=== PATIENT | female | born 1970 | race Two or more races ===

== ENCOUNTER 2021-12-07 08:00 | Outpatient (CLI) | payer OTHER | END 2021-12-07 08:30 | disposition home or self-care (01) | LOC: PPH VACUNA 08:00 | PROVIDERS: ATTEND Emergency Medicine Pediatric Emergency Medicine | DX: Z23 Encounter for immunization (principal) ==

== ENCOUNTER 2021-12-19 22:57 | Emergency (ER) | payer OTHER ==
[~2021-12-19] VITALS: Ht 157.5 cm; Wt 70.3 kg
== END 2021-12-20 01:07 | disposition home or self-care (01) ==
LOC: ER 22:57
DX: R00.2 Palpitations (principal)

== ENCOUNTER 2023-05-05 11:46 | Emergency (ER) | payer OTHER ==
[~2023-05-05] VITALS: Ht 170.2 cm; Wt 70.3 kg
== END 2023-05-05 19:47 | disposition home or self-care (01) ==
LOC: ER 11:46
DX: K52.9 Noninfective gastroenteritis and colitis, unspecified (principal)

== ENCOUNTER 2025-06-26 16:43 | Emergency (ER) | payer OTHER ==
[~2025-06-26] VITALS: Ht 170.2 cm; Wt 72.6 kg
[2025-06-26] MEDS ORDERED: FAMOTIDINE/PF 20 MG/2 ML VIAL IV PUSH STA (17:33)
[2025-06-26 18:05] LABS: BASO % 0.8 % (0.1-1.2); EOS # 0.17 (0.04-0.54); EOS % 4.4 % (0.7-7.0); LYMPH # 1.73 (1.18-3.74); LYMPH % 44.4 % (19.3-53.1); MEAN PLATELET VOLUME 10.10 fl (9.4-12.4); MONO # 0.32 (0.24-0.82); MONO % 8.2 % (4.7-12.5); NEUT # 1.64 (1.56-6.13); NEUT % 41.9 % (34.0-71.1); RED CELL DISTRIBUTION WIDTH 13.9 % (11.6-14.4)
[2025-06-26 18:34] LABS: ALT/SGPT 26.0 U/L (12-78); AST/SGOT 22.0 U/L (15-37); BILIRUBIN TOTAL 0.5 mg/dL (0.3-1.2); BUN CREA RATIO 22.0 (7.0-25.0); CREATININE SERUM 0.92 mg/dL (0.55-1.02); GFR 63.38; GLOBULINA 3.2 G/DL (2.4-3.5); GLUCOSE FASTING 91.0 mg/dL (65-100); OSMOLALITY SERUM 293.0 MOSM/KG (275-295)
[2025-06-26] MEDS ORDERED: KETOROLAC TROMETHAMINE 30 MG VIAL IM STA (18:49)
== END 2025-06-26 18:59 | disposition home or self-care (01) ==
LOC: ER 16:43
PROVIDERS: General Practice
DX: M94.0 Chondrocostal junction syndrome [Tietze] (principal)